=== PATIENT | female | born 1985 | race Caucasian/White ===

== ENCOUNTER 2020-08-02 15:36 | Outpatient (REF) | payer MEDICAID, SELFPAY ==
--- NOTE | 2020-08-02 | XR_ITS ---
EXAMINATION: XR FOOT, RIGHT CLINICAL INFORMATION: Pain and swelling of the right great toe for 3 weeks COMPARISON: None TECHNIQUE: AP, lateral, and oblique views of the right foot. FINDINGS: There is no fracture or dislocation. Alignment is anatomic. Joint spaces are maintained. The soft tissues are unremarkable. XR/XR foot RT min 3V IMPRESSION: No fracture or malalignment. Normal appearance of the foot.
--- NOTE | 2020-08-02 15:45 | XR_ITS ---
EXAMINATION: XR WRIST, LEFT CLINICAL INFORMATION: Left wrist pain COMPARISON: None TECHNIQUE: Four views of the left wrist FINDINGS: No fracture or dislocation. The carpal rows are well aligned. Joint spaces are maintained. The soft tissues are unremarkable. XR/XR wrist LT w scaphoid IMPRESSION: Normal appearance of the left wrist.
== END 2020-08-02 15:37 | disposition home or self-care (01) ==
LOC: HO.XRAY 15:36
PROVIDERS: Visit Provider Registered Nurse Community Health
DX: M79.674 Pain in right toe(s) (principal); M25.532 Pain in left wrist
CPT/HCPCS: 73110; 73630

== ENCOUNTER → 2022-03-07 14:46 | Outpatient (BNVA) | payer MEDICAID, SELFPAY | PROVIDERS: PCP Family Medicine; Visit Provider Advanced Practice Midwife | DX: O09.529 Supervision of elderly multigravida, unspecified trimester (principal); O09.A0 Supervision of pregnancy with history of molar pregnancy, unspecified trimester; Z3A.00 Weeks of gestation of pregnancy not specified | CPT/HCPCS: 99212 ==

== ENCOUNTER 2022-03-10 10:28 | Outpatient (REF) | payer MEDICAID, SELFPAY ==
--- NOTE | ~2022-03-10 | US_ITS ---
EXAMINATION: OBSTETRICAL ULTRASOUND, Follow up HISTORY: 36-year-old with positive test Dating ultrasound COMPARISON: None in this TECHNIQUE: Real time transabdominal imaging with color and M-mode Doppler. PRESENTATION: Vertex PLACENTA LOCATION: Anterior without previa AMNIOTIC FLUID: Within normal limits MEASUREMENTS: 1. Biparietal Diameter: 3.0 cm; 15.4 wks 2. Head Circumference: 10.9 cm; 15.2 wks 3. Abdominal Circumference: 8.8 cm; 15.1 wks 4. Femur Length: 1.7 cm; 15.0 wks 5. Heart Rate: 156 beats per minute WEIGHT: EFW: 112 grams (0 lbs 4 oz) -- n/a %. GESTATIONAL AGE: 1. Established GA: 16.2 wks 2. GA from [facility]: 15.2 wks ESTIMATED DATE OF DELIVERY: 1. Established KARTHIKEYAN: 08/23/2022 2. [facility]IKEYAN from [facility]: 08/30/2022 US/US OB limited IMPRESSION: 1. A single live fetus with biometry consistent with her gestational age of 16 weeks 2 days based on LMP. 2. Although she is too far along for the NT measurement, the nuchal area appeared grossly normal. 3. Normal ovaries. Thank you very much for this referral. This note was generated with a voice recognition program. Please excuse any errors which may have been overlooked during my review of this note. Sometimes these errors may affect the content or meaning of a given sentence.
== END 2022-03-10 10:29 | disposition home or self-care (01) ==
LOC: HO.US 10:28
PROVIDERS: Visit Provider Advanced Practice Midwife
DX: O09.512 Supervision of elderly primigravida, second trimester (principal); Z3A.15 15 weeks gestation of pregnancy
CPT/HCPCS: 76815

== ENCOUNTER → 2022-04-03 14:23 | Outpatient (BNVA) | payer MEDICAID, SELFPAY | PROVIDERS: PCP Family Medicine; Visit Provider Advanced Practice Midwife | DX: O09.522 Supervision of elderly multigravida, second trimester (principal); O99.352 Diseases of the nervous system complicating pregnancy, second trimester; G43.909 Migraine, unspecified, not intractable, without status migrainosus; Z3A.19 19 weeks gestation of pregnancy | CPT/HCPCS: 99212 ==

== ENCOUNTER 2022-04-07 13:25 | Outpatient (REF) | payer MEDICAID, SELFPAY ==
--- NOTE | ~2022-04-07 | US_ITS ---
EXAMINATION: US OBSTETRICAL CLINICAL INFORMATION: 36-year-old at the 20.2 weeks of gestation Screening for anomaly COMPARISON: 03/10/2022 TECHNIQUE: Real-time transabdominal ultrasound was performed using C1-5 megahertz transducer. FINDINGS: A single, active, fetus is seen in breech presentation. The placenta is anterior without previa, and the amniotic fluid volume is wnl. MEASUREMENTS: 1. Biparietal Diameter: 4.4 cm; 19.3 wks 2. Occipital Frontal Diameter: 5.7 cm 3. Head Circumference: 16.2 cm; 19.0 wks 4. Abdominal Circumference: 13.7 cm; 19.1 wks 5. Femur Length: 2.9 cm; 19.0 wks 6. Humerus Length: 2.7 cm; 18.5 wks 7. Tibia Length: 2.5 cm; 18.6 wks 8. Ulna Length: 2.6 cm; 19.3 wks 9. Lateral ventricle: 0.6 cm 10. Cerebellum: 1.9 cm; 19.4 wks 11. Cisterna Magna: 0.6 cm 12. Nuchal Fold: 2.7 mm 13. Heart Rate: 149 beats per minute Rt ovary: normal Lt ovary: normal Cervical length 4.2 cm on T/A. GESTATIONAL AGE: 1. Established GA: 20.2 wks 2. GA from [facility]: 19.1 wks ESTIMATED DATE OF DELIVERY: 1. Established KARTHIKEYAN: 08/23/2022 2. K[facility]THIKEYAN from [facility]: 08/31/2022 ANATOMY: The visualized anatomy includes but not limited to: 1. Cranium: Normal 2. Intracranial anatomy: cavum septum pellucidi, lateral ventricles, choroid plexus, cerebellum, posterior fossa, third and fourth ventricles. 3. face: orbits, lip/palate, profile, nasal bone 4. Heart: four-chamber view of the heart, ventricular septum, foramen ovale, pulmonary vein, left and right outflow tracts, three-vessel view, 3 vessel trachea view, aortic and ductal arches, situs.. 5. Diaphragm: Normal 6. Abdominal wall: Normal 7. Cord Insertion: Normal 8. Spine: Cervical, thoracic, lumbar, sacral. 9. Stomach: Normal size and shape 10. Right Kidney: Normal 11. Left Kidney: Normal 12. 3 vessel cord: Normal 13. Upper extremity: Open hands, fifth digit. 14. Lower extremity: Tibia, fibula, bilateral feet. 15. Bladder: Normal 16. Genitalia: Male, patient not aware US/US OB /maternal detail IMPRESSION: 1. Single, living, intrauterine with appropriate biometry. 2. Normal survey DISCUSSION: I reviewed today's ultrasound findings. We discussed the limitations of ultrasound in diagnosing aneuploidy and other congenital abnormalities. I reviewed the differences between screening test and diagnostic test. Amniocentesis was discussed and declined. She was informed that the baseline incidence of congenital abnormalities is approximately 3-5%. Not all these conditions are diagnosable in utero. RECOMMENDATIONS: 1. Please follow-up as clinically indicated. Thank you for allowing me to participate in her care. This note was generated with a voice recognition program. Please excuse any errors which may have been overlooked during my review of this note. Sometimes these errors may affect the content or meaning of a given sentence.
[2022-04-07 16:42] LABS: Hematocrit 34.4 % (37.0-47.0); Hemoglobin 11.4 g/dl (12.0-16.0); Mean Corpuscular HGB Conc 33.1 g/dl (31.0-35.0); Mean Corpuscular Hemoglobin 28.6 pg (27.0-33.0); Mean Corpuscular Volume 86.2 fL (80.0-98.0); Mean Platelet Volume 10.5 fL (9.4-12.3); Platelet Count 207 X10*3/uL (160-400); Red Blood Count 3.99 X10*6/uL (4.20-5.50); Red Cell Distribution Width 14.2 % (11.0-16.0); White Blood Count 10.3 X10*3/uL (4.8-10.8)
[2022-04-07 17:03] LABS: Glucose 1 Hour PP 50gm Dose 192 mg/dL (60-140)
[2022-04-07 17:04] LABS: Amphetamine Screen Urine Not Detected (Not Detect); Barbiturates, Urine Not Detected (Not Detect); Benzodiazepines Screen Urine Not Detected (Not Detect); Cannabinoid Screen Urine Not Detected (Not Detect); Cocaine Screen Urine Not Detected (Not Detect); Fentanyl, urine Not Detected (Not Detect); Opiate Screen Urine Not Detected (Not Detect); Phencyclidine Screen Urine Not Detected (Not Detect)
[2022-04-07 17:31] LABS: Syphilis Screen Nonreactive (Nonreactive)
[2022-04-10 10:02] LABS: HBsAGNum1 0.24 S/CO (0.00-0.99); HIV AB/AG Nonreactive (Nonreactive); HIV Num 1 0.07 S/CO (0.00-0.99); Hepatitis B Surface Antigen Negative (Negative); ~HepC Num1 0.12 S/CO (0.00-0.79); ~Hepatitis C Antibody Nonreactive (Nonreactive)
[2022-04-10 17:12] LABS: Rubella IgG Antibody 1.11 Index
== END 2022-04-07 13:26 | disposition home or self-care (01) ==
LOC: HO.US 13:25
PROVIDERS: Visit Provider Advanced Practice Midwife
DX: O09.522 Supervision of elderly multigravida, second trimester (principal); Z36.3 Encounter for antenatal screening for malformations; Z87.59 Personal history of other complications of pregnancy, childbirth and the puerperium
CPT/HCPCS: 76811; 80307; 85027; 86762; 86780; 86787; 86803; 87086; 87340; 87389

== ENCOUNTER 2022-04-11 07:58 | Outpatient (REF) | payer MEDICAID, SELFPAY ==
[2022-04-11 08:47] LABS: Glucose Fasting 85 mg/dL (60-99)
[2022-04-11 10:59] LABS: Glucose 1 Hour 172 mg/dL
[2022-04-11 10:59] LABS: Glucose 2 Hour 147 mg/dL
[2022-04-11 11:44] LABS: Glucose 3 Hour 104 mg/dL
== END 2022-04-11 07:59 | disposition home or self-care (01) ==
LOC: HO.LAB 07:58
PROVIDERS: PCP Registered Nurse Community Health; Visit Provider Advanced Practice Midwife
DX: O09.529 Supervision of elderly multigravida, unspecified trimester (principal); O99.810 Abnormal glucose complicating pregnancy; Z87.59 Personal history of other complications of pregnancy, childbirth and the puerperium
CPT/HCPCS: 36415; 82951; 86850; 86900

== ENCOUNTER 2022-11-22 11:38 | Outpatient (REF) | payer MEDICAID, SELFPAY ==
--- NOTE | 2022-11-22 10:30 | EMG_ITS ---
Please see scanned EMG / Nerve Conduction Report. MTDD
== END 2022-11-22 11:39 | disposition home or self-care (01) ==
LOC: HO.NEURO 11:38
PROVIDERS: PCP Registered Nurse; Visit Provider Registered Nurse
DX: R20.0 Anesthesia of skin (principal); R20.2 Paresthesia of skin
CPT/HCPCS: 95886; 95910